=== PATIENT | male | born 1965 | race Asian ===

== ENCOUNTER 2022-04-12 06:33 | Day surgery (SDC) | payer OTHER, SELFPAY ==
[2022-03-30 11:46] VITALS: BMI 24.2
--- NOTE | 2022-04-11 11:12 | P.CONAN_ITS ---
Documented by User: Dolores Mosher NP 04/11/22 11:13 HPI - Anesthesia Eval Consult details Narrative: 56yo M for Left Basilic Vein Transposition Left AV fistula [facility] Past Medical History Medical History Arteriovenous fistula of left upper extremity BPH (benign prostatic hyperplasia) CKD (chronic kidney disease), stage IV Diabetes Elevated cholesterol History of depression HTN (hypertension) Hx of low back pain On beta wu at home Surgical History Surgical History History of left nephrectomy S/P arteriovenous (AV) fistula creation Social History Social History Are you a primary career development manager to a significant other at home: No Do you presently have visiting nurse or other home services: No Patient Tobacco Use Status: Never used Tobacco Use of substances other than those prescribed or required for medical reasons: No Have you been hit, kicked, punched, or otherwise hurt by someone within the past year? If so, by whom?: No Are you DNR?: No Advance Directives: No Advance Directives Information Provided: Yes Advance Directives on File: No Recently lost weight without trying: Yes How much weight loss: 2-13 pounds Nutrition Risks: No Nutritional Risk Meds Allergies Allergy/AdvReac Type Severity Reaction Status Date / Time No Known Allergies Allergy Verified 04/12/22 07:07 Home Medications Medication Instructions Recorded Confirmed Last Taken Type amlodipine 10 mg tablet 10 mg PO DAILY 03/30/22 03/30/22 04/12/22 05:30 History cholecalciferol (vitamin D3) 125 125 mcg PO DAILY 03/30/22 03/30/22 Unknown History mcg (5,000 unit) tablet (Vitamin D3) metoprolol succinate 50 mg 50 mg PO DAILY 03/30/22 03/30/22 04/12/22 05:30 History tablet,extended release 24 hr rosuvastatin 10 mg tablet (Crestor) 10 mg PO DAILY 03/30/22 03/30/22 Unknown History sertraline 50 mg tablet 50 mg PO DAILY 03/30/22 03/30/22 Unknown History sitagliptin 50 mg tablet (Januvia) 50 mg PO DAILY 03/30/22 03/30/22 Unknown History sodium bicarbonate 325 mg tablet 325 mg PO BID 03/30/22 03/30/22 04/12/22 05:30 History sodium polystyrene sulfonate 15 g PO 2XW 03/30/22 03/30/22 Unknown History tamsulosin 0.4 mg capsule 0.4 mg PO BEDTIME 03/30/22 03/30/22 Unknown History Exam Exam Date and Time: April 11, 2022 1112 Height,Weight and Vital Signs: Height 5 ft 5 in Weight 66 kg Assessment and Plan Assessment Anesthesia Assessment: Chart Reviewed Documented by User: Frederic Mao MD 04/12/22 07:29 [facility] Past Medical History Medical History Arteriovenous fistula of left upper extremity BPH (benign prostatic hyperplasia) CKD (chronic kidney disease), stage IV Diabetes Elevated cholesterol History of depression HTN (hypertension) Hx of low back pain On beta wu at home Family History Family history of problems with anesthesia: No Surgical History Surgical History History of left nephrectomy S/P arteriovenous (AV) fistula creation History of Problems with Anesthesia: No Social History Social History Are you a primary career development manager to a significant other at home: No Do you presently have visiting nurse or other home services: No Patient Tobacco Use Status: Never used Tobacco Use of substances other than those prescribed or required for medical reasons: No Have you been hit, kicked, punched, or otherwise hurt by someone within the past year? If so, by whom?: No Are you DNR?: No Advance Directives: No Advance Directives Information Provided: Yes Advance Directives on File: No Recently lost weight without trying: Yes How much weight loss: 2-13 pounds Nutrition Risks: No Nutritional Risk Meds Allergies Allergy/AdvReac Type Severity Reaction Status Date / Time No Known Allergies Allergy Verified 04/12/22 07:07 Home Medications Medication Instructions Recorded Confirmed Last Taken Type amlodipine 10 mg tablet 10 mg PO DAILY 03/30/22 03/30/22 04/12/22 05:30 History cholecalciferol (vitamin D3) 125 125 mcg PO DAILY 03/30/22 03/30/22 Unknown History mcg (5,000 unit) tablet (Vitamin D3) metoprolol succinate 50 mg 50 mg PO DAILY 03/30/22 03/30/22 04/12/22 05:30 History tablet,extended release 24 hr rosuvastatin 10 mg tablet (Crestor) 10 mg PO DAILY 03/30/22 03/30/22 Unknown History sertraline 50 mg tablet 50 mg PO DAILY 03/30/22 03/30/22 Unknown History sitagliptin 50 mg tablet (Januvia) 50 mg PO DAILY 03/30/22 03/30/22 Unknown History sodium bicarbonate 325 mg tablet 325 mg PO BID 03/30/22 03/30/22 04/12/22 05:30 History sodium polystyrene sulfonate 15 g PO 2XW 03/30/22 03/30/22 Unknown History tamsulosin 0.4 mg capsule 0.4 mg PO BEDTIME 03/30/22 03/30/22 Unknown History Exam Airway Loose/Missing/Broken Teeth: No Heart: rrr Lungs: clear Assessment and Plan Final Anesthetic Review Family History of Problems with Anesthesia: No History of Problems with Anesthesia: No NPO: Yes ASA Class: III Final Preanesthetic Review: No Changes in Pt Med Stat, Meds/Allgs Chart Reviewed, Consent Obtained/Reviewed and Anes Risks/Benef Reviewed Patient Risk: Intermediate Procedure Risk: Low Anesthetic Plan Anesthetic Plan: MAC: Disposition: Standard PACU
[2022-04-12] VITALS (8 sets, daily range): BP systolic 105–143; BP diastolic 68–87; PULSE 54–76; RESP 8–18; TEMP 36.1–36.4; O2SAT 97–100
[2022-04-12 07:27] LABS: Glucose, Whole Blood 77 mg/dL (60-115)
[2022-04-12 07:42] LABS: Anion Gap 16 (12-20); Carbon Dioxide 20 mmol/L (22-29); Chloride 108 mmol/L (96-108); Potassium 4.3 mmol/L (3.3-5.1); Sodium 140 mmol/L (135-145)
--- NOTE | 2022-04-12 10:58 | P.OP_ITS ---
Operative Note Operative Note Date of Service: 04/12/22 Narrative: Pre-op Dx: Stage 4 CKD Post-op Dx: Stage 4 CKD Operation: Left arm basilic vein transposition Surgeon: Андрей Casas MD Anesthesia: MAC, local Procedure: The patient was placed on the OR table in a supine position. Lower extremity compression devices were placed. The anesthesiologist administered the pre- operative antibiotic. An US of the upper arm cephalic and basilic veins was performed on the left arm. After successful induction of MAC anesthesia, the left arm was prepped and draped in a sterile fashion. A surgical timeout took place. Local anesthetic was used. An incision was made over the upper arm basilic vein, above the elbow. The Bovie electrocautery was used to dissect through the subcutaneous tissue. The basilic vein was isolated and skeletonized. Vessel loops were placed around it. Two more incisions were made along the medial aspect of the upper arm, over the basilic vein. The entire basilic vein was dissected out. Branches were ligated and divided with 2-0 silk ties. The basilic vein was ligated and divided just above the medial epicondyle of the elbow with a 2-0 silk tie. The basilic vein was marked and tunneled along the bicep. The brachial artery was dissected out, through the incision just above the elbow. Proximal and distal control was obtained. The cut end of the basilic vein was anastomosed to the brachial artery using a 6-0 Prolene suture, in a running fashion. The clamps were released and a thrill was noted. Hemostasis was maintained. The incisions were closed in layers. Surgical glue was applied. The hand was well perfused. The patient tolerated the procedure well. All instrument, sponge and needle counts were correct at the end of the case. Findings: palpable radial pulse at end of case and thrill through the fistula.
[2022-04-12] MEDS: oxyCODONE HCl Immed Release 5 MG TABLET PO (11:15)
[2022-04-12 11:37] LABS: Glucose, Whole Blood 77 mg/dL (60-115)
== END 2022-04-12 12:27 | disposition home or self-care (01) ==
PROVIDERS: Nurse Practitioner; PCP Internal Medicine; Visit Provider Transplant Surgery
PROC: (CPT 36819; principal; 2022-04-12 07:30)
DX: E11.22 Type 2 diabetes mellitus with diabetic chronic kidney disease (principal); I12.9 Hypertensive chronic kidney disease with stage 1 through stage 4 chronic kidney disease, or unspecified chronic kidney disease; N18.4 Chronic kidney disease, stage 4 (severe); Z90.5 Acquired absence of kidney; N40.0 Benign prostatic hyperplasia without lower urinary tract symptoms; E78.00 Pure hypercholesterolemia, unspecified; Z79.84 Long term (current) use of oral hypoglycemic drugs; Z79.899 Other long term (current) drug therapy
CPT/HCPCS: 36819; 36415; 80051; 82947; J0690; J2250; J2795; J3010; J3370